=== PATIENT | female | born 2005 | race Caucasian/White ===

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

== ENCOUNTER 2025-08-17 02:23 | Emergency (ER) | payer OTHER, SELFPAY ==
[2025-08-17] VITALS (9 sets, daily range): BP systolic 115–133; BP diastolic 65–85; PULSE 61–76; RESP 15–20; TEMP 36.4–36.8; O2SAT 98–100
--- NOTE | ~2025-08-17 | XR_ITS ---
Examination: XR chest 2V Clinical History: chest pain sob Comparison: None Technique: PA and Lateral Findings: Cardiomediastinal silhouette normal size and configuration. Lungs clear. No acute bony abnormality. IMPRESSION: 1. No acute cardiopulmonary findings. Reviewed, dictated and finalized at location R. P CARE WORKER
--- OUTSIDE RECORDS SUMMARY | 2025-08-17 02:25 | XMS_ITS | Clinical Summary ---
Author Organization [facility] lin Address [address] [place] [address] Care Team Providers Care Weeder Thinner Name Role Phone Unavailable Primary Care Provider Unavailabl e Social History Tobacco Use Types Packs/Day Years Used Date Smoking Tobacco: Never Assessed Comments Unknown Sex and Gender Information Value Date Recorded Sex Assigned at Not on file Legal Sex Female 9:17 PM EST Gender Identity Not on file Sexual Orientation Not on file Plan of Treatment Not on file Medical Devices Not on file
--- NOTE | 2025-08-17 02:26 | ECG_ITS ---
Test Date: 2025-08-17 02:33:07 Measurements Intervals [place] Rate: 82 P: 83 IA: 132 QRS: 75 QRSD: 99 T: 40 QT: 375 QTc: 438 Interpretive Statements SINUS RHYTHM BASELINE ARTIFACT- II, III, AVR, AVF NORMAL ECG No previous ECG available for comparison Electronically Signed On 08-17-2025 09:26:04 AUDIO VIDEO TECHNICIAN by Jeremiah Salinas D.O.
[2025-08-17 04:14] LABS: Hematocrit 35.7 % (37.0-47.0); Hemoglobin 11.9 g/dL (12.0-15.0); Immature Granulocyte Percent A 0.1 % (0-0.5); Lymphocytes Absolute Auto 3.49 K/mm3 (0.9-3.2); Mean Corpuscular HGB Conc 33.3 g/dl (32-36); Mean Corpuscular Hemoglobin 30.2 pg (26-34); Mean Corpuscular Volume 90.6 fl (80-100); Nucleated Red Blood Cells Absolute Auto 0.000 K/mm3 (0.0-0.012); Nucleated Red Blood Cells Perc 0.0 % (0.0-0.2); Platelet Count Result 291 k/mm3 (150-375); Red Blood Count 3.94 M/mm3 (4.2-5.4); White Blood Count 8.7 K/mm3 (4.5-10.0)
[2025-08-17 04:25] LABS: INR 1.1; Prothrombin Time 14.0 Seconds (11.1-14.7)
[2025-08-17 04:26] LABS: Partial Thromboplastin Time 27.4 Seconds (22.3-36.8)
[2025-08-17 04:29] LABS: Alanine Aminotransferase 15 U/L (6-35); Albumin Level 4.2 g/dL (3.5-5.1); Alkaline Phosphatase 61 U/L (38-126); Anion Gap 6 mmol/L (4-12); Aspartate Amino Transferase 27 U/L (14-36); Bilirubin,Total 0.5 mg/dL (0.2-1.3); Blood Urea Nitrogen 10 mg/dL (7-17); Calcium 9.0 mg/dL (8.4-10.2); Carbon Dioxide 24 mmol/L (22-30); Chloride 103 mmol/L (98-107); Estimated CRCL calculation 100 ml/min; Estimated Glomerular Filt Rate > 60; Glucose 101 mg/dL (65-110); Lipase 40 U/L (23-300); Potassium 3.8 mmol/L (3.4-5.0); Sodium 133 mmol/L (137-145); Total Protein 7.3 g/dL (6.3-8.2)
[2025-08-17 04:40] LABS: Troponin I < 0.012 ng/mL (0.000-0.034)
--- NOTE | 2025-08-17 07:05 | ED.GENADULT ---
HPI - General Adult General Chief complaint: Chest Pain Stated complaint: Chest pain and SOB Time Seen by Provider: 08/17/25 06:50 History of Present Illness HPI narrative: 20-year-old female presents to the emergency department for evaluation for upper abdominal/lower chest pain that started approximately 2 hours prior to arrival. Patient states that she was just cleaning her room when she had onset of symptoms. Patient states the symptoms swelling a tightness in her lower chest that did radiate to her right arm. Patient denies any prior cardiac history. Patient denies any prior issues with her gallbladder. Patient states pain is improved at this time. Related Data Allergies Allergy/AdvReac Type Severity Reaction Status Date / Time No Known Allergies Allergy Mild Verified 08/17/25 04:07 Review of Systems Review of Systems: All systems reviewed & are unremarkable except as noted in HPI and below PMFSH Past Medical History Medical History Sinusitis, acute Otitis media BMI between 19-24,adult BMI 25.0-25.9,adult Trauma Fatigue Fatigue Hx of infectious mononucleosis Hematuria Abdominal pain Flank pain, acute UTI (urinary tract infection) Nausea & vomiting EBV exposure LUQ pain Dermatitis Head injury, acute BMI 23.0-23.9, adult BMI 24.0-24.9, adult Family History Family History Father Hypertension Mother Hypertension Sibling No problems noted. 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 Gender identity (if verbalized by the patient): Female Sexual Orientation (if Verbalized by the Patient): Straight or Heterosexual Exam Narrative: APPEARANCE: Well appearing, no pain, no distress, well-nourished. HEAD: normocephalic, atraumatic. EYES: PERRLA/EOMI, conjunctivae clear. NOSE: Normal no drainage EARS:TMS clear with good light reflex. THROAT: Pharynx clear, no exudate. NECK: Supple. No adenopathy, no masses. RESPIRATORY: Airway patent, respirations nonlabored. Clear to auscultation bilaterally, no rales, rhonchi, wheezing. CARDIOVASCULAR: Regular rate and rhythm without murmurs rubs or gallops. ABDOMINAL: Mild diffuse abdominal tenderness, normal bowel sounds MUSCULOSKELETAL: Moves all extremities. Strength/ROM intact, No edema, No calf tenderness. NEURO: Alert. Cranial nerves II through XII intact. Good gait. Good coordination SKIN: Warm, dry. Normal Color Course Vital Signs Vital signs: Vital Signs Temperature 97.5 F L 08/17/25 02:32 Pulse Rate 72 08/17/25 02:32 Respiratory Rate 18 08/17/25 02:32 Blood Pressure 127/70 08/17/25 02:32 Pulse Oximetry 100 08/17/25 02:32 Oxygen Delivery Room Air 08/17/25 02:32 Temperature 98.2 F 08/17/25 04:11 Pulse Rate 61 08/17/25 09:22 Respiratory Rate 20 08/17/25 09:22 Blood Pressure 117/65 08/17/25 09:22 Pulse Oximetry 100 08/17/25 09:22 Oxygen Delivery Room Air 08/17/25 04:11 [facility] Narrative Medical decision making narrative: 20-year-old female presents emergency department for evaluation for chest pain and upper abdominal pain. Patient states pain has since improved. Patient denies any associated nausea vomiting diarrhea. Patient denies any change in the pain with eating or breathing. Patient states the pain does move around her chest. At time of evaluation patient appears to be in no distress. Patient is currently afebrile with no leukocytosis hemoglobin 11.9. Patient has an INR of 1.1. Patient has no acute abnormalities on her CMP including normal T bili AST ALT alk-phos. Patient has a normal lipase and a negative initial troponin. Chest x-ray shows no acute cardiopulmonary abnormality. Patient had negative serial troponins and a negative D-dimer. Patient was treated with IV Toradol. On re-evaluation patient states she does feel improved. Suspect muscular etiology versus gastritis. Low concern for pulmonary embolism, pneumonia, pneumothorax, ACS. Low concern for acute cholecystitis. Patient and family are updated the results of the workup and recommendation for close follow-up with primary care physician. All questions concerns were addressed. Differential Diagnosis Differential Diagnosis: Pneumonia, cholecystitis, colitis, ACS, pulmonary embolism Lab Data MDM Lab Attestation statement: I personally reviewed the patient's lab results. 08/17/25 04:08 08/17/25 04:08 Labs: Lab Results 08/17/25 08/17/25 Range/Units 04:08 07:34 WBC 8.7 (4.5-10.0) K/mm3 RBC 3.94 L (4.2-5.4) M/mm3 Hgb 11.9 L (12.0-15.0) g/dL Hct 35.7 L (37.0-47.0) % MCV 90.6 (80-100) fl MCH 30.2 (26-34) pg MCHC 33.3 (32-36) g/dl RDW 11.9 (11.5-14.5) % Plt Count 291 (150-375) k/mm3 MPV 8.9 (7.4-10.4) fl Immature Gran % (Auto) 0.1 (0-0.5) % Neut % (Auto) 48.3 (45.5-73.1) % Lymph % (Auto) 40.1 (18.3-44.2) % Harlan % (Auto) 6.1 (2.6-8.5) % Eos % (Auto) 4.7 H (0-4.4) % Baso % (Auto) 0.7 (0.2-1.2) % Lymph # (Auto) 3.49 H (0.9-3.2) K/mm3 Harlan # (Auto) 0.5 (0.1-0.6) K/mm3 Eos # (Auto) 0.4 H (0-0.3) K/mm3 Baso # (Auto) 0.1 (0.0-0.1) K/mm3 Abs Immat Gran (auto) 0.01 (0.00-0.031) K/mm3 Absolute Neuts (auto) 4.2 (1.3-6.7) K/mm3 Absolute Nucleated RBC 0.000 (0.0-0.012) K/mm3 Nucleated RBC % 0.0 (0.0-0.2) % PT 14.0 (11.1-14.7) Seconds INR 1.1 APTT 27.4 (22.3-36.8) Seconds D-Dimer 0.35 (<0.48) ug/mL Sodium 133 L (137-145) mmol/L Potassium 3.8 (3.4-5.0) mmol/L Chloride 103 (98-107) mmol/L Carbon Dioxide 24 (22-30) mmol/L Anion Gap 6 (4-12) mmol/L BUN 10 (7-17) mg/dL Creatinine 0.76 (0.7-1.0) mg/dL Estim Creat Clear Calc 100 ml/min Estimated GFR > 60 (59 - ) Glucose 101 (65-110) mg/dL Calcium 9.0 (8.4-10.2) mg/dL Total Bilirubin 0.5 (0.2-1.3) mg/dL AST 27 (14-36) U/L ALT 15 (6-35) U/L Alkaline Phosphatase 61 (38-126) U/L Troponin I < 0.012 < 0.012 (0.000-0.034) ng/mL Total Protein 7.3 (6.3-8.2) g/dL Albumin 4.2 (3.5-5.1) g/dL Lipase 40 (23-300) U/L Imaging Data Radiologist's impression: ITS Impressions Chest X-Ray 08/17/25 06:42 IMPRESSION: 1. No acute cardiopulmonary findings. Discharge Plan Discharge Clinical Impression: Atypical chest pain Patient Disposition: Home Condition: Stable Instructions: Antibiotic Form, Chest Pain (ED) Additional Instructions: Tylenol and ibuprofen for pain control. Have close follow-up with your primary care physician for additional outpatient evaluation. If you have any worsening symptoms and please call or return to the emergency department. Patient Language: Spanish Prescriptions: No Action norgestimate-ethinyl estradiol [[id number]] 0.18/0.215/0.25 mg-0.025 mg tablet 1 tablet PO DAILY Qty: 84 0RF Follow-up/Referrals: Carlos Goodrich MD [Primary Care Provider, [facility]] Quality HEART score for chest pain patients History: slightly suspicious ECG: normal Age: < or = to 45 years Risk factors: 1 or 2 risk factors Troponin: < or = to 1x normal limit Heart score: 1
--- NOTE | 2025-08-17 07:25 | ECG_ITS ---
Test Date: 2025-08-17 07:33:34 Measurements Intervals [place] Rate: 63 P: 65 ID: [id number] QRS: 79 QRSD: 101 T: 46 QT: 406 QTc: 416 Interpretive Statements SINUS RHYTHM NORMAL ECG Compared to ECG 08/17/2025 02:33:07 No significant changes Electronically Signed On 08-17-2025 09:29:46 HEEL REDUCER by Jeremiah Salinas D.O.
[2025-08-17 08:00] LABS: Troponin I < 0.012 ng/mL (0.000-0.034)
[2025-08-17] MEDS: KETOROLAC 15 MG/ML VIAL (*BKC) IV PUSH (08:06)
== END 2025-08-17 09:24 | disposition home or self-care (01) ==
PROVIDERS: Student in an Organized Health Care Education/Training Program; Emergency Provider Emergency Medicine; PCP Family Medicine
DX: R07.89 Other chest pain (principal)
CPT/HCPCS: 36415; 71046; 80053; 83690; 84484; 85025; 85380; 85610; 85730; 93005; 96374; 99284; J1885